=== PATIENT | male | born 1995 | race Caucasian/White ===

== ENCOUNTER 2022-08-16 07:50 | Emergency (ER) | payer OTHER, MEDICAID, SELFPAY ==
[2022-08-16 07:57] VITALS: BP 136/78; PULSE 64; RESP 16; TEMP 36.1; O2SAT 97
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
== END 2022-08-16 09:07 | disposition home or self-care (01) ==
PROVIDERS: Emergency Provider Physician Assistant
DX: L02.416 Cutaneous abscess of left lower limb (principal); M70.52 Other bursitis of knee, left knee; F17.290 Nicotine dependence, other tobacco product, uncomplicated
CPT/HCPCS: 10060; 87077; 99283; 87070; 87186; 87205

== ENCOUNTER 2022-08-18 21:20 | Emergency (ER) | payer OTHER, MEDICAID, SELFPAY ==
[2022-08-18 21:25] VITALS: BP 158/80; PULSE 72; RESP 18; TEMP 36.6; O2SAT 100
--- NOTE | 2022-08-18 21:33 | ED.GENADUL_ITS ---
Discharge Plan Disposition Patient Disposition: HOME Condition: Good Discharge Details Clinical Impression: Cellulitis Primary Care Provider: Unknown,Unknown ED Provider: Arden Brantley Home Meds and New Rx's Prescriptions: New clindamycin HCl 150 mg capsule 450 mg PO Q6H 10 Days Qty: 120 0RF No Action amoxicillin 875 mg tablet 875 mg PO BID Qty: 20 0RF doxycycline monohydrate 100 mg tablet 100 mg PO BID Qty: 20 0RF Discharge Instructions Instructions: Cellulitis (ED) Additional Instructions: At this time we have marked your cellulitis. Please give it another 12 hours, and take your evening dose of antibiotics tonight. If you notice that it is not worsening by tomorrow morning, continue on the current antibiotic regiment. If it is worse, or in 48 hours it is not improved at all, started on the clindamycin. Please take a probiotic to help with your gut health to prevent any diarrhea. If you notice any worsening of your symptoms, or any new symptoms such as vomiting, diarrhea, fever, chills, shortness of breath, chest pain, numbness, weakness, or fainting , please return immediately to the emergency department for reevaluation. Please follow up with your primary care provider as soon as possible for reassessment and reevaluation. As always, it was a pleasure participating in your medical care today. Medical Decision Making This is a 27-year-old male who presents today for evaluation of cellulitis. The patient demonstrates evidence of a boil 3 days ago, this was lanced at that time. Patient was started on 875 mg of amoxicillin and 100 mg of doxycycline. Unfortunately since then the patient has noted some redness that is extended down the knee. He has been taking his antibiotics for the last 2 days. The patient denies any fevers. He denies any chills. He denies any pain in the knee, but does admit to pain on the superficial aspect of the knee. Patient denies any other complaints at this time. No other modifying factors. Physical exam demonstrates Patient's left knee demonstrates the post boil lesion. There is some mild redness around that, patient states that this is not spread at all. However there is very light superficial redness distal on the anterior aspect below the knee tracing down to the ankle. No induration. No calf tenderness. No other significant lesions. No fluctuance. Patient otherwise looks notably stable. No evidence of sepsis whatsoever. At this time I do feel that continued watching is stable and appropriate with his current antibiotic regimen. Will recommend another 12 hours. If the redness extends past the outlined area, then we will recommend he start clindamycin. Otherwise we will recommend continuation of what he is doing and close continued monitoring. Patient otherwise looks well. He shows no signs whatsoever of a septic joint, no pain of the knee with movement. No other complaints at this time. No other modifying factors. I have extensively reviewed the treatment plan and discharge instructions with the patient. I have addressed all patient concerns at this time. The patient was made aware of what symptoms to monitor for that would warrant a return to the emergency department. Discussed the plan with the patient, they demonstrate verbal understanding and agreement with our assessment and plan at this time. The documentation in this chart was dictated using [employer] dictation software. Please excuse any dictation errors. HPI General Date/Time Provider Initiated Documentation: 08/18/22 21:24 . HPI Narrative: This is a 27-year-old male who presents today for evaluation of cellulitis. The patient demonstrates evidence of a boil 3 days ago, this was lanced at that time. Patient was started on 875 mg of amoxicillin and 100 mg of doxycycline. Unfortunately since then the patient has noted some redness that is extended down the knee. He has been taking his antibiotics for the last 2 days. The patient denies any fevers. He denies any chills. He denies any pain in the knee, but does admit to pain on the superficial aspect of the knee. Patient denies any other complaints at this time. No other modifying factors. Related Data Home Medications Medication Instructions Recorded Confirmed amoxicillin 875 mg tablet 875 mg PO BID #20 tabs 08/16/22 08/18/22 doxycycline monohydrate 100 mg 100 mg PO BID #20 tabs 08/16/22 08/18/22 tablet clindamycin HCl 150 mg capsule 450 mg PO Q6H 10 days #120 caps 08/18/22 Previous Rx's Medication Instructions Recorded amoxicillin 875 mg tablet 875 mg PO BID #20 tabs 08/16/22 doxycycline monohydrate 100 mg 100 mg PO BID #20 tabs 08/16/22 tablet clindamycin HCl 150 mg capsule 450 mg PO Q6H 10 days #120 caps 08/18/22 Allergies Allergy/AdvReac Type Severity Reaction Status Date / Time No Known Allergies Allergy Unverified 08/16/22 08:03 General Stated Complaint: Laceration MAXIM: 4 Review of Systems All systems reviewed & are unremarkable except as noted in HPI and below PFSH All Active Problems Cellulitis (Acute) Bursitis (Acute) Social History Smoking/Tobacco Use Status: Current every day Tobacco Type: e-cigarettes Smoking risk assessment performed?: Yes Alcohol Intake: current Alcohol Intake frequency: a few times a week Alcohol type: beer and wine Drug use: Never Substance use type: does not use Do you feel safe at home: No Do you feel safe in your relationship?: No Exam Narrative Exam Narrative: 1.Const: Well-nourished, Well-developed, appearing stated age 2.Eyes: PERRL, no conjunctival injection, and symmetrical lids. 3.ENT: Atraumatic external nose and ears. Moist MM. Neck: Symmetric, trachea midline, No thyromegaly. 4.CVS: +S1/S2, No murmurs or gallops. Peripheral pulses 2+ and equal in all extremities. Brisk capillary refill in all extremities. 5.RESP: Unlabored respiratory effort. Clear to auscultation bilaterally. No wheezes rales or rhonchi 6.GI: Soft, Nontender/Nondistended, No hepatosplenomegaly. No guarding or rebound. 7.MSK: Patient's left knee demonstrates the post boil lesion. There is some mild redness around that, patient states that this is not spread at all. However there is very light superficial redness distal on the anterior aspect below the knee tracing down to the ankle. No induration. No calf tenderness. No other significant lesions. No fluctuance. 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 Sensation grossly intact, no focal neurologic deficits. 10.Psych: (AAO) x3. Appropriate mood and affect Course Vital Signs Vital signs: Vital Signs Temperature 36.6 C 08/18/22 21:25 Pulse 72 08/18/22 21:25 Respiratory Rate 18 08/18/22 21:25 Blood Pressure 158/80 H 08/18/22 21:25 Pulse Oximetry 100 08/18/22 21:25 Temperature 36.6 C 08/18/22 21:25 Temperature Source Temporal Artery Scan 08/18/22 21:25 Pulse 72 08/18/22 21:25 Respiratory Rate 18 08/18/22 21:25 Respiratory Effort 08/18/22 21:28 Blood Pressure 158/80 H 08/18/22 21:25 Blood Pressure Position Sitting 08/18/22 21:25 Pulse Oximetry 100 08/18/22 21:25 Oxygen Delivery Method Room Air 08/18/22 21:25 Oxygen Flow Rate 0 08/18/22 21:25 Pain Level 6 08/18/22 21:25
== END 2022-08-18 21:43 | disposition home or self-care (01) ==
LOC: ER 21:37
PROVIDERS: Emergency Provider Student in an Organized Health Care Education/Training Program
DX: L03.116 Cellulitis of left lower limb (principal)
CPT/HCPCS: 99283; 99284